=== PATIENT | female | born 1990 | race Two or more races ===

== ENCOUNTER 2023-09-08 13:48 | Outpatient (CLI) | payer OTHER | END 2023-09-08 13:50 | disposition home or self-care (01) | LOC: PRENATAL 13:48 | PROVIDERS: ATTEND Obstetrics & Gynecology Maternal & Fetal Medicine | DX: O36.80X0 Pregnancy with inconclusive fetal viability, not applicable or unspecified (principal); Z36.82 Encounter for antenatal screening for nuchal translucency; O10.019 Pre-existing essential hypertension complicating pregnancy, unspecified trimester; O34.219 Maternal care for unspecified type scar from previous cesarean delivery; O99.210 Obesity complicating pregnancy, unspecified trimester; Z14.8 Genetic carrier of other disease; Z3A.12 12 weeks gestation of pregnancy ==

== ENCOUNTER → 2023-10-01 | Emergency (ER) | payer OTHER ==
[~2023-10-01] VITALS: Ht 165.1 cm; Wt 110.2 kg
[~2023-10-01] MED LIST: CHILDREN'S ASPI81 MG; NIFEDIPINE20 MG; PRENATAL + DHA1 EAC1
== END | disposition left against medical advice (07) ==
LOC: ER 15:26
DX: Z53.21 Procedure and treatment not carried out due to patient leaving prior to being seen by health care provider (principal)

== ENCOUNTER → 2023-12-29 08:22 | Outpatient (CLI) | payer OTHER | END | disposition home or self-care (01) | LOC: PRENATAL 08:22 | PROVIDERS: ATTEND Obstetrics & Gynecology Maternal & Fetal Medicine | DX: O26.843 Uterine size-date discrepancy, third trimester (principal); O16.3 Unspecified maternal hypertension, third trimester; O34.219 Maternal care for unspecified type scar from previous cesarean delivery; O99.213 Obesity complicating pregnancy, third trimester; O36.0930 Maternal care for other rhesus isoimmunization, third trimester, not applicable or unspecified; Z3A.28 28 weeks gestation of pregnancy ==

== ENCOUNTER 2024-01-26 10:13 | Outpatient (CLI) | payer OTHER | END 2024-01-26 10:14 | disposition home or self-care (01) | LOC: PRENATAL 10:13 | PROVIDERS: ATTEND Obstetrics & Gynecology Maternal & Fetal Medicine | DX: O26.843 Uterine size-date discrepancy, third trimester (principal); O36.8130 Decreased fetal movements, third trimester, not applicable or unspecified; O16.3 Unspecified maternal hypertension, third trimester; O34.219 Maternal care for unspecified type scar from previous cesarean delivery; O99.213 Obesity complicating pregnancy, third trimester; O36.0930 Maternal care for other rhesus isoimmunization, third trimester, not applicable or unspecified; Z3A.32 32 weeks gestation of pregnancy ==

== ENCOUNTER → 2024-02-23 11:55 | Outpatient (CLI) | payer OTHER | END | disposition home or self-care (01) | LOC: PRENATAL 11:55 | PROVIDERS: ATTEND Obstetrics & Gynecology Maternal & Fetal Medicine | DX: O26.849 Uterine size-date discrepancy, unspecified trimester (principal); O36.8199 Decreased fetal movements, unspecified trimester, other fetus; O10.019 Pre-existing essential hypertension complicating pregnancy, unspecified trimester; O34.219 Maternal care for unspecified type scar from previous cesarean delivery; O99.210 Obesity complicating pregnancy, unspecified trimester; O36.1999 Maternal care for other isoimmunization, unspecified trimester, other fetus; Z3A.36 36 weeks gestation of pregnancy ==

== ENCOUNTER 2024-03-05 12:37 | Inpatient (IN) | payer OTHER ==
[~2024-03-05] VITALS: Ht 165.1 cm; Wt 115.7 kg
[2024-03-05] MEDS ORDERED: CEFAZOLIN SODIUM 1,000 MG VIAL IV SCH (13:30)
[2024-03-05] MEDS ORDERED: RINGERS SOLUTION,LACTATED 1,000 ML IV SCH (13:30)
[2024-03-05 15:45] VITALS: BP 125/84
[2024-03-05] MEDS ORDERED: OXYTOCIN 10 UNITS/ML VIAL ONE (18:33)
[2024-03-05] MEDS ORDERED: ERYTHROMYCIN BASE OPHT 1GM EACH TUBE OP ONE (18:33)
[2024-03-05 19:33] VITALS: BP 134/80
[2024-03-05] MEDS ORDERED: ONDANSETRON HCL 2 MG/ML VIAL IV PRN (22:15)
[2024-03-05] MEDS ORDERED: MORPHINE SULFATE 4 MG/ML CARTRIDGE IV PRN (22:15)
[2024-03-05] MEDS ORDERED: FF) RHO(D) IMMUNE GLOBULIN (POM) IM ONE (22:30)
[2024-03-05] MEDS ORDERED: METOCLOPRAMIDE HCL 5 MG/ML VIAL IV SCH (23:15)
[2024-03-05] MEDS ORDERED: OXYTOCIN 1,000 ML IV SCH (23:15)
[2024-03-06] MEDS ORDERED: KETOROLAC TROMETHAMINE 30 MG VIAL IV SCH
[2024-03-06] MEDS ORDERED: MORPHINE SULFATE 2 MG/ML CARTRIDGE IV ONE ×3 (00:05→01:50)
[2024-03-06] MEDS ORDERED: OXYTOCIN 10 UNITS/ML VIAL ONE (02:58)
[2024-03-06 03:42] VITALS: BP 110/75
[2024-03-06] MEDS ORDERED: ACETAMINOPHEN 500 MG GEL..CAP PO PRN (06:00)
[2024-03-06 08:00] VITALS: BP 128/70
[2024-03-06 08:45] LABS: HEMATOCRIT 32.3 % (36.0-45.00); MEAN CELL VOLUME 90.2 fL (80.00-100.00); MEAN CORPUSCULAR HEMOGLOBIN 30.8 pg (27.00-32.0); MEAN CORPUSCULAR HGB CONC 34.2 g/dl (32.0-36.0); PLATELET COUNT 159 K/uL (150-450); RED BLOOD COUNT 3.58 M/uL (4.00-6.00); RED CELL DISTRIBUTION WIDTH 13.8 % (11.5-14.5)
[2024-03-06] MEDS ORDERED: SIMETHICONE 125 MG CAPSULE PO SCH (09:00)
[2024-03-06] MEDS ORDERED: IBUprofen 800 MG TABLET PO SCH (09:00)
[2024-03-06 19:05] VITALS: BP 107/76
[2024-03-06] MEDS ORDERED: SENNOSIDES 1 TAB TABLET PO SCH (21:00)
[2024-03-07] VITALS: BP 95/60
[2024-03-07 08:49] VITALS: BP 115/76
[2024-03-07 16:00] VITALS: BP 109/73
== END 2024-03-07 17:43 | disposition home or self-care (01) | DRG 785 ==
LOC: LDR 12:37 → OB/GYN 12:37
PROVIDERS: ADMIT Obstetrics & Gynecology; ATTEND Obstetrics & Gynecology
PROC: 0UB70ZZ Excision of Bilateral Fallopian Tubes, Open Approach (ICD-10-PCS; 2024-03-05)
PROC: 0DNW0ZZ Release Peritoneum, Open Approach (ICD-10-PCS; 2024-03-05)
PROC: 4A1HXCZ Monitoring of Products of Conception, Cardiac Rate, External Approach (ICD-10-PCS; 2024-03-05)
PROC: 10D00Z1 Extraction of Products of Conception, Low, Open Approach (ICD-10-PCS; principal; 2024-03-05 20:30)
DX: O10.02 Pre-existing essential hypertension complicating childbirth (principal); O99.892 Other specified diseases and conditions complicating childbirth; O34.211 Maternal care for low transverse scar from previous cesarean delivery; N73.6 Female pelvic peritoneal adhesions (postinfective); Z3A.38 38 weeks gestation of pregnancy; Z37.0 Single live birth; Z30.2 Encounter for sterilization; Z20.822 Contact with and (suspected) exposure to COVID-19